=== PATIENT | female | born 2000 | race Caucasian/White ===

== ENCOUNTER 2022-07-08 12:21 | Emergency (ER) | payer MEDICAID, OTHER ==
[~2022-07-08] VITALS: Ht 162.6 cm; Wt 52.2 kg
[2022-07-08 13:43] LABS: HEMATOCRIT 31.4 % (31.2-41.9); MEAN CORPUSCULAR HEMOGLOBIN 27.5 uug (24.7-32.8); MEAN CORPUSCULAR VOLUME 84.2 fL (75.5-95.3); PLATELET COUNT (AUTO) 337 K/uL (179-408)
[2022-07-08 14:01] LABS: CREATININE 0.6 mg/dL (0.6-1.3); POTASSIUM 3.4 mmol/L (3.5-5.1)
--- NOTE | 2022-07-08 14:02 | NUR ---
Started IV 20g, Right AC, rose blood, taken to lab.
[2022-07-08] MEDS ORDERED: MORPHINE SULFATE 4 MG/1 ML DISP.SYRIN ONE (16:13)
[2022-07-08] MEDS ORDERED: MORPHINE SULFATE 4 MG/1 ML DISP.SYRIN IV ONE (16:15)
--- NOTE | 2022-07-08 16:30 | NUR ---
Despite WBC's being normal, pt still insists that she has an infection.
[2022-07-08] MEDS ORDERED: SULF1TAB48 PO (16:42)
[2022-07-08] MEDS ORDERED: CLIN300C12 PO (17:02)
[2022-07-08] MEDS ORDERED: CEPH500C2 PO (17:02)
[2022-07-08] MEDS ORDERED: HYDR-4209 PO (17:21)
[2022-07-08] MEDS ORDERED: PANT40TA49 PO (17:22)
--- NOTE | 2022-07-08 17:33 | NUR ---
Removed IV intact, site okay, bandaged. Gave pt RX and d/c instructions, pt verbalized understanding.
== END 2022-07-08 17:49 | disposition home or self-care (01) ==
LOC: ER 12:25
DX: T81.41XA Infection following a procedure, superficial incisional surgical site, initial encounter (principal); L03.317 Cellulitis of buttock
CPT/HCPCS: 99284; 74176; 96374; 80048; 85025; 86850; 86900; 86901; 84702; 36415; J2270; A4663